=== PATIENT | male | born 1950 | race Caucasian/White ===

== ENCOUNTER 2016-12-07 09:58 | Inpatient (IN) | payer OTHER, MEDICARE ==
[2016-11-08 11:30] VITALS: BMI 29.0
--- NOTE | 2016-11-08 12:17 | PAT Medication Instructions ---
Service Date Nov 08, 2016. Current Home Medication List Albuterol (Ventolin Hfa), 2 PUFF INH DAILY PRN for Shortness of Breath Amlodipine (Norvasc), 5 MG PO QAM Aspirin Enteric Coated (Ecotrin Or Generic *), 81 MG PO QAM Atorvastatin (Lipitor), 80 MG PO QPM Calcium/Vitamin D (Os-Quentin 500 Plus D), 1 TAB PO BID Lisinopril (Prinivil), 40 MG PO QAM Meloxicam (Mobic), 15 MG PO QAM Metoprolol Tartrate (Lopressor) (Lopressor), 100 MG PO BID Olopatadine Hydrochloride (Patanol 0.1% Oph), 1 DROP OP BID PRN Omeprazole (Prilosec), 20 MG PO QAM Tamsulosin Hcl (Flomax *), 0.4 MG PO HS Medication Instructions For Your Scheduled Surgery - Check with surgeon for instructions: Meloxicam (Mobic), 15 MG PO QAM - Hold the following medications the morning of surgery: Lisinopril (Prinivil), 40 MG PO QAM Calcium/Vitamin D (Os-Quentin 500 Plus D), 1 TAB PO BID - Take the following medications the morning of surgery with a sip of water: Omeprazole (Prilosec), 20 MG PO QAM Olopatadine Hydrochloride (Patanol 0.1% Oph), 1 DROP OP BID PRN (if needed) Metoprolol Tartrate (Lopressor) (Lopressor), 100 MG PO BID Aspirin Enteric Coated (Ecotrin Or Generic *), 81 MG PO QAM Albuterol (Ventolin Hfa), 2 PUFF INH DAILY PRN for Shortness of Breath (if needed) Amlodipine (Norvasc), 5 MG PO QAM - Take the following medications as scheduled the night before surgery: Tamsulosin Hcl (Flomax *), 0.4 MG PO HS Olopatadine Hydrochloride (Patanol 0.1% Oph), 1 DROP OP BID PRN (if needed) Metoprolol Tartrate (Lopressor) (Lopressor), 100 MG PO BID Calcium/Vitamin D (Os-Quentin 500 Plus D), 1 TAB PO BID Atorvastatin (Lipitor), 80 MG PO QPM Albuterol (Ventolin Hfa), 2 PUFF INH DAILY PRN for Shortness of Breath (if needed) If you have any questions please call us at [phone] or [phone] or [phone]
[2016-11-08 13:12] LABS: BASO % 0.1 %; BASO ABS # 0.01 K/uL (0-0.2); COMPLETE YES; EOS % 2.1 %; IG% 0.3 %; LYMPH ABS # 1.76 K/uL (1.2-3.4); MEAN CELL VOLUME 97.7 fL (80-100); MEAN CORPUSCULAR HEMOGLOBIN 33.7 pg (25-34); MEAN CORPUSCULAR HGB CONC 34.5 g/dl (32-36); MEAN PLATELET VOLUME 9.6 fL (7.4-10.4); MONO % 7.2 %; NEUT % 64.3 %; PLATELET COUNT 154 K/uL (130-400); WHITE BLOOD COUNT 6.78 K/uL (4.8-10.8)
[2016-11-08 13:14] LABS: URINE APPEARANCE CLEAR (CLEAR); URINE BILIRUBIN NEG (NEG); URINE COLOR YELLOW; URINE EPITHELIAL CELL AUTO 0-5 /lpf (0-5); URINE NITRITE NEG (NEG); URINE SPECIFIC GRAVITY 1.029 (1.000-1.030); UROBILINOGEN NEG (NEG); ZZUR CULT IF INDIC CLEAN CATCH NO
[2016-11-08 13:15] LABS: MANUAL MICROSCOPIC REQUIRED? NO; REVIEW REQ? NO
--- NOTE | 2016-11-08 13:20 | DIAGNOSTIC IMAGING REPORT ---
CHEST PREADMISSION(PA/LAT) CLINICAL HISTORY: Preoperative chest COMPARISON STUDY: 12/24/2010 FINDINGS: Postsurgical changes are present on the left. There is superior left hilar retraction. There are persistent areas of left apical pleural-parenchymal scarring. There is no acute parenchymal consolidation. There is no failure. There are no pleural effusions.[ IMPRESSION: Chronic left apical scarring. No acute findings. Electronically signed by: Brown Quiroz M.D. 11/08/2016 1:19 PM Dictated Date/Time: 11/08/2016 1:18 PM
[2016-11-08 13:21] LABS: BUN/CREATININE RATIO 30.7 (10-20); CALCIUM 9.8 mg/dl (8.5-10.1); POTASSIUM 4.5 mmol/L (3.5-5.1)
[2016-11-08 13:23] LABS: ESTIMATED AVERAGE GLUCOSE 120 mg/dl; HA1C FLAG Normal (Normal)
[2016-11-08 13:25] LABS: INR 1.1 (0.9-1.1); PROTHROMBIN TIME (PATIENT) 11.4 SECONDS (9.0-12.0)
--- NOTE | 2016-11-10 15:26 | History and Physical ---
History & Physical Date Nov 10, 2016. Chief Complaint bilateral knee osteoarthritis History of Present Illness natalio is a pleasant 66-year-old male who presents for preoperative evaluation prior to bilateral knee replacements. Patient states that they have been having pain in this knee for many years now, which has gradually worsened, it has now gotten to the point it is affecting his daily activities including walking, standing, going up and down steps. Patient has tried and failed conservative measures including previous cortisone injection, viscosupplementation, bracing, physical therapy, and PO NSAIDs with no relief. At this point in time, patient has failed conservative measures and would like to proceed with bilateral knee replacement. Past Medical/Surgical History Hypertension High Cholesterol history of lung cancer GERD history of prostate cancer Right great toe surgery right Carpal tunnel release Additional History Hepatic Disease: No Hypertension: Yes Infectious Diseases: No Allergies Coded Allergies: Iodinated Contrast Media (Verified Allergy, Intermediate, HIVES WITH "CT DYE", 11/08/16) Home Medications Scheduled Amlodipine (Norvasc), 5 MG PO QAM Aspirin Enteric Coated (Ecotrin Or Generic *), 81 MG PO QAM Atorvastatin (Lipitor), 80 MG PO QPM Calcium/Vitamin D (Os-Quentin 500 Plus D), 1 TAB PO BID Lisinopril (Prinivil), 40 MG PO QAM Meloxicam (Mobic), 15 MG PO QAM Metoprolol Tartrate (Lopressor) (Lopressor), 100 MG PO BID Olopatadine Hydrochloride (Patanol 0.1% Oph), 1 DROP OP BID PRN Omeprazole (Prilosec), 20 MG PO QAM Tamsulosin Hcl (Flomax *), 0.4 MG PO HS Scheduled PRN Albuterol (Ventolin Hfa), 2 PUFF INH DAILY PRN for Shortness of Breath Physical Examination Skin: warm/dry, no rash Eyes: normal inspection, EOMI, sclerae normal ENT: normal ENT inspection, pharynx normal Head: normocephalic, atraumatic Neck: supple, no adenopathy, trachea midline Respiratory/Chest: lungs clear, normal breath sounds, no respiratory distress Cardiovascular: regular rate, rhythm, no edema, no murmur Addiitonal Comments: Bilateral Knees: no erythema or warmth, mild effusion. ROM 0/3/110 left knee, 0/ 3/115 right knee. ligamentously stable bilateral knees, positive tenderness anterior and medial joint lines. Bilateral knee X-RAY: Xrays reviewed of bilateral knees showing findings consistent with degenerative joint disease including joint space narrowing, subchondral sclerosis and peripheral osteophyte formation. no acute bony pathology, overall varus alignment. Impression: degenerative joint disease of bilateral knees with no acute bony pathology noted. Diagnosis Bilateral Knee osteoarthritis- has failed visco, cortisone, previous knee scopes , PO NSAIDs w/o relief. Further care discussed with patient and at this point in time has failed conservative measures and would like to proceed with bilateral total knee replacements. Plan on discharge will be home with home health physical therapy. DVT prophalaxis with TEDs, SCDs and will also place on Lovenox for 2 weeks postop.. Patient will have follow up appointment in our office two weeks post op for staple/suture removal and re-evaluation. Patient otherwise has no other questions or concerns.
[2016-12-07] VITALS (9 sets, daily range): BP systolic 115–146; BP diastolic 72–88; PULSE 62–77; TEMP 36.4–36.9; O2SAT 96–100; Ht 170.2 cm; Wt 84.9 kg
[~2016-12-07] VITALS: Ht 170.2 cm; Wt 84.9 kg
[2016-12-07] MEDS: TRANEXAMIC ACID INJ 1,000 MG in SODIUM CHLORIDE 0.9% 100ML 100 ML IV SCH ×2 (06:00→06:30)
--- NOTE | 2016-12-07 07:26 | History & Physical Bridge Note ---
H&P Re-Evaluation Bridge Note: I have examined the patient, reviewed the History & Physical and in the interval since the performance of the History & Physical I have noted the following changes of clinical significance: No changes noted
[~2016-12-07 09:58] MED LIST: ACETAMINOPHEN 500 MG TAB PO SCH; AMLO-110 PO; ASPEC81 PO; ATOR-26 PO; BUPIVACAINE 0.25% 30 ML VIAL ONE; BUPIVACAINE 0.5 % 5 MG/1 ML PF 10ML VIAL ONE; CALC500C70 PO; CEFAZOLIN 2000 MG/60 ML D5W 60 ML IV SCH; CeleBREX 200 MG CAP PO SCH; DEXAMETHASONE 4 MG TAB PO SCH; FAMOTIDINE 20 MG TAB PO SCH; FLM4 PO; GABAPENTIN 300 MG CAP PO SCH; LACTATED RINGER'S 1000ML 1,000 ML IV SCH; LACTATED RINGER'S 1000ML 500 ML IV ONE; LACTATED RINGER'S 1000ML IV SCH; LISI40TA PO; MELO7.5T5 PO; METO50TA16 PO; METOCLOPRAMIDE HCL 10 MG TAB PO SCH; OLOP0.1S2 OP; PRLSR20 PO; PRVHFAIN INH; ROPIVACAINE 5MG/ML 30 ML 150 MG, BUPIVACAINE/EPINEPHR 0.5% MPF 30 ML, KETOROLAC TROMETH... INFIL SCH
[2016-12-07] MEDS ORDERED: EpHEDrine SULFATE INJ 50 MG/ML AMP IV PRN (11:45)
[2016-12-07] MEDS ORDERED: ONDANSETRON INJ 2 MG/ML 2 ML VIAL IV PRN ×2 (11:45→16:00)
[2016-12-07] MEDS ORDERED: LABETALOL HCL IV 5 MG/ML 20ML IV PRN (11:45)
[2016-12-07] MEDS ORDERED: HYDROmorphone INJ 1 MG/ML SYR IV PRN (11:45)
[2016-12-07] MEDS ORDERED: ATROPINE SULFATE 0.1 MG/ML 5ML SYR IV PRN (11:45)
[2016-12-07] MEDS ORDERED: MEPERIDINE HCL 25 MG/ML CARP IV PRN (11:45)
[2016-12-07] MEDS ORDERED: FENTANYL CITRATE INJ 50 MCG/1 ML 2 ML VIAL IV PRN (11:45)
[2016-12-07] MEDS ORDERED: MIDAZOLAM HCL 1 MG/ML 2ML VIAL ONE (12:09)
[2016-12-07] MEDS ORDERED: ORTHO JOINT ANESTHETIC ONE (12:51)
[2016-12-07] MEDS ORDERED: POVIDONE-IODINE OP SOLN 30 ML BTL ONE (12:51)
[2016-12-07] MEDS ORDERED: BACITRACIN 50000 UNIT VIAL ONE (12:52)
[2016-12-07] MEDS ORDERED: BUPIVACAINE 0.5 % 5 MG/1 ML PF 10ML VIAL ONE (13:08)
[2016-12-07] MEDS ORDERED: PROPOFOL IV EMULSION 10 MG/ML 20 ML VIAL IV ONE ×3 (13:37→15:18)
[2016-12-07] MEDS ORDERED: PHENYLEPHRINE 100MCG/ML 5ML SYR ONE (14:13)
[2016-12-07] MEDS ORDERED: BACITRACIN 50000 UNIT VIAL IR ONE (14:58)
--- NOTE | 2016-12-07 15:22 | [facility] Operative Report ---
Operative Report Operative Date Dec 07, 2016. Pre-Operative Diagnosis Degenerative Joint Disease, bilateral knee Post-Operative Diagnosis Degenerative Joint Disease, bilateral knees Procedure(s) Performed Bilateral Total Knee Arthroplasty Lopes & Nephew journey 2 nonlocked total knee arthroplasty size right 7 femur 7 tibia Poly-35 oval patella left size 7 femur 7 tibia Poly-size [address] Horowitz Broker Assistant Surgeon(s) Heather Abel PA-C Estimated Blood Loss 5 mL right 5 mL left Findings Patient presents with bilateral varus deformities of both knees with subchondral sclerosis subchondral cystic changes medial osteophytes varus alignment medial varus thrust of femur on tibia as well as patellofemoral arthritis unresponsive conservative management including injections viscus of rotations corticosteroid injections anti-inflammatories relative rest bracing activity modification presents for total knee arthroplasty Specimens A: right knee bone and tissue B: left knee bone and tissue Complication(s) None Disposition Recovery Room / PACU Indications Patient presents after failing attempts at conservative management including injections anti-inflammatories activity modification relative rest patient presents for bilateral total knee Orthoplast after thorough discussion regarding risk altercations patient elected she for bilateral total knee arthroplasty Description of Procedure After proper prepping and draping of the bilateral lower extremities, an anterior midline incision was made over the region of the extensor extensor mechanism of the left knee. After meticulous hemostasis was obtained and maintained in subcutaneous tissues a medial parapatellar incision was made The patella was subluxed lateralward the medial lateral gutter were cleaned from any hypertrophic synovitis and scar tissue of the distal femoral block was placed and the distal femoral osteotomy cut was made subsequently the chamfers anterior and posterior osteotomy cuts were made utilizing the 4-in-1 block the tibia was subsequently subluxed anteriorward medial and ateral meniscal remnants were excised in their entirety remnants of the anterior and posterior cruciate ligaments were excised in their entirety excellent exposure of the proximal tibia was obtained the tibial osteotomy guide was placed on the proximal tibial osteotomy cut was made once again the knee was irrigated with copious amounts of sterile saline solution the patella was subsequently everted lateralward thickened scar tissue around the patella was removed the patella was subsequently cut utilizing a freehand technique and was drilled prepared for final preparation and placement of patella socially flexion-extension gaps were checked and the equal and symmetric trials were placed to the appropriate femoral and tibial trials with poly-spacer being placed for equal flexion and extension gaps and full range of motion including extension to 0 and flexion to 140 the trial components after having been taken to recovery range of motion was subsequently removed meticulous hemostasis was obtained and maintained subsequently a knee block injection of joint cocktail including ropivacaine 0.5 % 150 mg. Bupivacaine 0.5% epinephrine 1-200,030 mL's toradol 30 mg dexamethasone 4 mg ketamine 10 mg clonidine 100 micrograms normal saline solution 30 mg was infiltrated into the soft tissues of the posterior knee medial lateral gutters and periosteal synovium special attention was paid to protect neurovascular structures at all times subsequently trial components having been removed the knee was irrigated with sterile saline solution. debris was removed the proximal tibia was subsequently prepared and was made ready for the placement of the tibial component tibial component was also cemented and tamped into position the femoral component was subsequently placed and cemented in the position the patellar component was subsequently cemented in position because hemostasis once again obtained and maintained wound having been thoroughly irrigated with debridement and debridement lavage was performed as well as a medial parapatellar incision closed with #1 Vicryl in interrupted fashion subcutaneous was closed with #2 Vicryl skin was closed with skin clips Next, an anterior midline incision was made over the region of the extensor extensor mechanism of the right knee. After meticulous hemostasis was obtained and maintained in subcutaneous tissues a medial parapatellar incision was made The patella was subluxed lateralward the medial lateral gutter were cleaned from any hypertrophic synovitis and scar tissue of the distal femoral block was placed and the distal femoral osteotomy cut was made subsequently the chamfers anterior and posterior osteotomy cuts were made utilizing the 4-in-1 block the tibia was subsequently subluxed anteriorward medial and ateral meniscal remnants were excised in their entirety remnants of the anterior and posterior cruciate ligaments were excised in their entirety excellent exposure of the proximal tibia was obtained the tibial osteotomy guide was placed on the proximal tibial osteotomy cut was made once again the knee was irrigated with copious amounts of sterile saline solution the patella was subsequently everted lateralward thickened scar tissue around the patella was removed the patella was subsequently cut utilizing a freehand technique and was drilled prepared for final preparation and placement of patella socially flexion-extension gaps were checked and the equal and symmetric trials were placed to the appropriate femoral and tibial trials with poly-spacer being placed for equal flexion and extension gaps and full range of motion including extension to 0 and flexion to 140 the trial components after having been taken to recovery range of motion was subsequently removed meticulous hemostasis was obtained and maintained subsequently a knee block injection of joint cocktail including ropivacaine 0.5 % 150 mg. Bupivacaine 0.5% epinephrine 1-200,030 mL's toradol 30 mg dexamethasone 4 mg ketamine 10 mg clonidine 100 micrograms normal saline solution 30 mg was infiltrated into the soft tissues of the posterior knee medial lateral gutters and periosteal synovium special attention was paid to protect neurovascular structures at all times subsequently trial components having been removed the knee was irrigated with sterile saline solution. debris was removed the proximal tibia was subsequently prepared and was made ready for the placement of the tibial component tibial component was also cemented and tamped into position the femoral component was subsequently placed and cemented in the position the patellar component was subsequently cemented in position because hemostasis once again obtained and maintained wound having been thoroughly irrigated with debridement and debridement lavage was performed as well as a medial parapatellar incision closed with #1 Vicryl in interrupted fashion subcutaneous was closed with #2 Vicryl skin was closed with skin clips.. PA-C was necessary for prepping and drapping as well as wound closure of deep fascia Sub cutaneous tissue and skin and was necessary for the case. A sterile compressive dressings were placed, patient was taken to recovery in stable condition of report dictated by Carlos Manuel I attest to the content of the Intraoperative Record and any orders documented therein. Any exceptions are noted below. I attest to the content of the Intraoperative Record and any orders documented therein. Any exceptions are noted below.
[2016-12-07] MEDS ORDERED: ALBUTEROL HFA 8 GM INHALER INH PRN (16:00)
[2016-12-07] MEDS ORDERED: SOD PHOSPHATE/SOD BIPHOSPHATE ENEMA 132 ML BTL PR PRN (16:00)
[2016-12-07] MEDS ORDERED: ZOLPIDEM TARTRATE 5 MG TAB PO PRN (16:00)
[2016-12-07] MEDS ORDERED: MAGNESIUM HYDROXIDE SUSP 30 ML UDC PO PRN (16:00)
[2016-12-07] MEDS ORDERED: ALUMINUM/MAGNESIUM/SIMETH (MAALOX MAX) 30 ML UDC PO PRN (16:00)
[2016-12-07] MEDS ORDERED: DiphenhydrAMINE HCL 50 MG/ML VIAL IV PRN (16:00)
[2016-12-07] MEDS ORDERED: BISACODYL 10 MG SUPP PR PRN (16:00)
[2016-12-07] MEDS ORDERED: MoRPHine SULFATE 2 MG/ML CARP IV PRN (16:00)
--- NOTE | 2016-12-07 16:51 | Anesthesiology Progress Note ---
Anesthesia Post Op Note Date & Time Dec 07, 2016 at 16:51 Vital Signs Pain Intensity: 0 Vital Signs Past 12 Hours Date Time Temp Pulse Resp B/P (MAP) Pulse Ox O2 Delivery O2 Flow Rate FiO2 12/07/16 16:40 62 18 118/67 100 Nasal Cannula 4 12/07/16 16:30 65 18 121/68 100 Nasal Cannula 4 12/07/16 16:20 66 18 114/66 100 Nasal Cannula 4 12/07/16 16:10 69 18 112/64 99 Nasal Cannula 4 12/07/16 16:00 68 14 107/65 96 Nasal Cannula 4 12/07/16 15:51 36 68 14 102/68 96 Nasal Cannula 4 12/07/16 10:39 36.9 62 20 137/87 96 Room Air Notes Mental Status: alert / awake / arousable, participated in evaluation Pt Amnestic to Procedure: Yes Nausea / Vomiting: adequately controlled Pain: adequately controlled Airway Patency, RR, SpO2: stable & adequate BP & HR: stable & adequate Hydration State: stable & adequate Neuraxial Anesthesia: was administered, sensory block is resolving Anesthetic Complications: no major complications apparent
--- NOTE | 2016-12-07 16:53 | DIAGNOSTIC IMAGING REPORT ---
L KNEE 1 OR 2 VIEWS ROUTINE, R KNEE 1 OR 2 VIEWS ROUTINE CLINICAL HISTORY: AP/LATERAL IN PACU LEFT KNEE COMPARISON STUDY: None. FINDINGS: The patient is status post bilateral total knee arthroplasties. The hardware is intact. No fracture or dislocation. Surgical drains are in place. IMPRESSION: Status post bilateral total knee arthroplasties. No evidence for hardware complication. Electronically signed by: Hi Galdamez M.D. 12/07/2016 4:51 PM Dictated Date/Time: 12/07/2016 4:50 PM
[2016-12-07] MEDS ORDERED: MoRPHine SULFATE 4 MG/ML 1 ML CARP\\VIAL IV PRN (17:00)
[2016-12-07] MEDS: D5W AND 1/2NSS + 20MEQ KCL 1,000 ML IV SCH (19:44)
[2016-12-07] MEDS: OXYCODONE HCL IR 5 MG TAB (IMMEDIATE RELEASE) PO PRN (19:45)
[2016-12-07] MEDS: OXYCODONE HCL 10 MG TABCR (OXYCONTIN) PO SCH (21:35)
[2016-12-07] MEDS: SENNA 8.6 MG TAB PO SCH (21:35)
[2016-12-07] MEDS: ASPIRIN 81 MG ECTAB PO SCH (21:35)
[2016-12-07] MEDS: TAMSULOSIN HCL 0.4 MG CAP PO SCH (21:36)
[2016-12-07] MEDS: ATORVASTATIN 40 MG TAB PO SCH (21:36)
[2016-12-07] MEDS: METOPROLOL TARTRATE 50 MG TAB PO SCH (21:37)
[2016-12-07] MEDS: ACETAMINOPHEN 500 MG TAB PO SCH (21:38)
[2016-12-07] MEDS: KETOROLAC TROMETHAMINE 15 MG/ML VIAL IV. SCH (21:38)
[2016-12-07] MEDS: CEFAZOLIN IV 1,000 MG in SYRINGE 0 ML IV SCH (21:46)
[2016-12-08] VITALS (7 sets, daily range): BP systolic 100–169; BP diastolic 58–78; PULSE 67–101; TEMP 36.5–36.9; O2SAT 92–97
[2016-12-08] MEDS: KETOROLAC TROMETHAMINE 15 MG/ML VIAL IV. SCH ×3 (03:35→16:47)
[2016-12-08] MEDS: D5W AND 1/2NSS + 20MEQ KCL 1,000 ML IV SCH ×2 (03:35→13:33)
[2016-12-08 06:16] LABS: HEMATOCRIT 35.1 % (42-52); MEAN CELL VOLUME 95.6 fL (80-100); MEAN CORPUSCULAR HEMOGLOBIN 32.7 pg (25-34); MEAN CORPUSCULAR HGB CONC 34.2 g/dl (32-36); MEAN PLATELET VOLUME 9.6 fL (7.4-10.4); PLATELET COUNT 121 K/uL (130-400); RED BLOOD COUNT 3.67 M/uL (4.7-6.1); WHITE BLOOD COUNT 13.42 K/uL (4.8-10.8)
[2016-12-08] MEDS: ACETAMINOPHEN 500 MG TAB PO SCH ×3 (06:16→21:47)
[2016-12-08] MEDS: CEFAZOLIN IV 1,000 MG in SYRINGE 0 ML IV SCH (06:16)
[2016-12-08 06:49] LABS: BUN/CREATININE RATIO 21.1 (10-20); CALCIUM 8.2 mg/dl (8.5-10.1); CREATININE 1.06 mg/dl (0.60-1.40); POTASSIUM 4.2 mmol/L (3.5-5.1)
[2016-12-08] MEDS ORDERED: DEXAMETHASONE 4 MG TAB PO SCH (07:30)
[2016-12-08] MEDS: PANTOprazole SOD 40 MG TAB PO SCH (09:22)
[2016-12-08] MEDS: OXYCODONE HCL 10 MG TABCR (OXYCONTIN) PO SCH ×2 (09:23→21:45)
[2016-12-08] MEDS: OXYCODONE HCL IR 5 MG TAB (IMMEDIATE RELEASE) PO PRN (09:24)
[2016-12-08] MEDS: METOPROLOL TARTRATE 50 MG TAB PO SCH ×2 (09:24→21:45)
[2016-12-08] MEDS: MULTIVITAMIN TAB PO SCH (09:25)
[2016-12-08] MEDS: LISINOPRIL 40 MG TAB PO SCH (09:25)
[2016-12-08] MEDS: AMLODIPINE BESYLATE 5 MG TAB PO SCH (09:25)
[2016-12-08] MEDS: ASPIRIN 81 MG ECTAB PO SCH ×2 (09:25→21:44)
--- NOTE | 2016-12-08 10:15 | Orthopedic Progress Note ---
Orthopedic Progress Note Date of Service Dec 08, 2016. Subjective Post OP Day: 1 Reports: feeling well, Denies: chest pain, SOB, nausea / vomiting, light headedness, calf pain Objective calves soft nontender, N/V intact, capillary refill less than 2 sec., incision C /D/I, A&O x3, toes mobile, hemovac drainage (R 25/175 cc per shift; L 25/115 cc per shift) Date Time Temp Pulse Resp B/P (MAP) Pulse Ox O2 Delivery O2 Flow Rate FiO2 12/08/16 09:20 84 150/77 (101) 12/08/16 07:36 36.7 69 16 119/76 (90) 95 Room Air 12/08/16 02:45 36.7 72 16 101/69 (80) 92 Room Air 12/07/16 23:05 36.5 77 16 115/72 (86) 97 Room Air 12/07/16 20:30 36.4 75 16 124/72 (89) 96 Room Air 12/07/16 20:30 Room Air 12/07/16 19:17 36.4 75 16 146/80 (102) 99 12/07/16 18:15 36.5 76 16 146/83 (104) 100 Nasal Cannula 2.0 12/07/16 18:09 97 Nasal Cannula 2.0 12/07/16 18:04 97 Nasal Cannula 2.0 12/07/16 17:54 36.4 68 18 139/88 (105) 98 Nasal Cannula 2.0 12/07/16 17:15 36.5 63 16 129/77 (94) 97 Nasal Cannula 2.0 12/07/16 16:50 36 60 18 123/68 100 Nasal Cannula 4 12/07/16 16:40 62 18 118/67 100 Nasal Cannula 4 12/07/16 16:30 65 18 121/68 100 Nasal Cannula 4 12/07/16 16:20 66 18 114/66 100 Nasal Cannula 4 12/07/16 16:10 69 18 112/64 99 Nasal Cannula 4 12/07/16 16:00 68 14 107/65 96 Nasal Cannula 4 12/07/16 15:51 36 68 14 102/68 96 Nasal Cannula 4 12/07/16 10:39 36.9 62 20 137/87 96 Room Air Laboratory Results 24 Hours: Test 12/08/16 05:59 Hematocrit 35.1 % Hemoglobin 12.0 g/dL Assessment & Plan Assessment: POD#1 sp BL TKAs Plan: PT/OT DVT proph- ASA 81mg bid Pain management- Pearl, Oxycontin, Tylenol, Celebrex DC planning- home with [facility], likely tomorrow. Dc dressing/drains in am.
--- NOTE | 2016-12-08 13:35 | Discharge Instructions ---
Discharge Instructions Date of Service Dec 08, 2016. Admission Reason for Admission: Bilateral Knee Osteoarthritis Discharge Discharge Diagnosis / Problem: sp BL TKAs Discharge Goals Goal(s): Decrease discomfort, Improve function, Increase independence Activity Recommendations Activity Limitations: per Instructions/Follow-up section . Instructions / Follow-Up Instructions / Follow-Up ACTIVITY RECOMMENDATIONS: SELF CARE INSTRUCTIONS AFTER TOTAL KNEE REPLACEMENT A. You may need to continue a physical therapy program after discharge from the hospital. There are several options available to you. Your doctor will assist you in selecting the best one for you. 1. An out-patient facility 2 to 3 times a week for therapy or home therapy. 2. Continue working on all exercises taught to you in the hospital. Your goals should be to increase bending of your knee to 90 degrees and beyond and to fully straighten your knee. B. You may progress at your own pace from walking with a walker or crutches to a cane; then to no assistive devices. C. Make walking a part of your daily routine. Be up as much as comfortable with rest periods throughout the day. Rest with leg elevation is very important. Use the ice wrap frequently for the first 3-4 weeks. D. There are no restrictions on activities. You may ride in a car, shop, participate in enamel applier and all social activities. E. Wear the long elastic stockings (AMOR hose) 20 hours a day for 2 weeks after surgery. They can be removed several times a day for laundering and for a bath. F. You may shower, no tub baths until cleared by your doctor. SPECIAL CARE INSTRUCTIONS: VERY IMPORTANT TO READ AND REVIEW A. There are a few signs you need to watch for after you are home. Call [facility] if you notice any of the followin. Increased severe knee pain. Some pain is expected especially when you exercise. 2. Increased swelling in your leg or knee; pain or swelling of the calf muscle in either lower leg. 3. Any fluid drainage from the incision. 4. Shortness of breath or chest pain. B. Please call [facility] at if you have any concerns or questions about your operation or recovery. The doctor or his nurse will return your call promptly. C. You must take antibiotics before dental work, bladder, bowel or other surgery. Your doctor will provide you with a permanent care to carry describing this precaution. IMPORTANT: * REMEMBER TO TAKE ASPIRIN, 81 MG, TWICE DAILY FOR 4 WEEKS UNLESS OTHERWISE DIRECTED. THIS IS YOUR BLOOD THINNER. * HIGH RISK PATIENTS MAY BE PRESCRIBED A STRONGER BLOOD THINNER. THIS WILL BE PROVIDED AT DISCHARGE. * CALL IF INCREASED PAIN, REDNESS, DRAINAGE OR FEVER GREATER THAT 101. * WEAR AMOR HOSE 20 HOURS PER DAY FOR 2 WEEKS. DERMABOND Prineo- This is a mesh tape dressing that is covered with glue. It should remain in place until the incision is properly healed, usually 10-14 days. This dressing is designed to naturally slough off. You may trim the excess mesh tape as it peels off. Incision may be briefly wet in a shower. Dry immediately by blotting with a clean, dry towel. Do not bath or swim until instructed by your doctor. Do not scratch, rub, or pick at the dressing. Do not apply any topical ointments or lotions until dressing is completely removed and/or instructed by your doctor. There may be a small piece of suture material at one end of your incision. Do not pull or trim this. If it is bothersome or catching on clothing, you may cover it with a band-aid. FOLLOW UP VISIT: If appointment is not already scheduled: Please call [facility] to make a follow-up appointment for 2 weeks after your surgery at . Current Hospital Diet Patient's current hospital diet: Regular Diet Discharge Diet Recommended Diet: Regular Diet Procedures Procedures Performed: Bilateral Total Knee Arthroplasty Lopes & Nephew journey 2 nonlocked total knee arthroplasty size right 7 femur 7 tibia Poly-35 oval patella left size 7 femur 7 tibia Poly-size 35 oval patella Pending Studies Studies pending at discharge: no Laboratory Results Hemoglobin A1c Test 11/08/16 12:25 Range/Units Estimated Average Glucose 120 mg/dl Hemoglobin A1c 5.8 H 4.5-5.6 % Medical Emergencies . Who to Call and When: Medical Emergencies: If at any time you feel your situation is an emergency, please call 911 immediately. . Non-Emergent Contact Non-Emergency issues call your: Surgeon . "Provider Documentation" section prepared by Sabina Abel. . VTE Core Measure Inpt VTE Proph given/why not?: Other Anticoagulation, T.E.D. Stockings, SCD's [place] Drug Monitoring Program Search Results: patient reviewed within database, no issues identified
[2016-12-08] MEDS: CeleBREX 200 MG CAP PO SCH (21:44)
[2016-12-08] MEDS: TAMSULOSIN HCL 0.4 MG CAP PO SCH (21:44)
[2016-12-08] MEDS: ATORVASTATIN 40 MG TAB PO SCH (21:45)
[2016-12-08] MEDS: SENNA 8.6 MG TAB PO SCH (22:19)
[2016-12-09] MEDS: ACETAMINOPHEN 500 MG TAB PO SCH (05:43)
[2016-12-09 07:23] VITALS: BP 128/77; PULSE 71; TEMP 36.9; O2SAT 93
[2016-12-09] MEDS ORDERED: SNK PO (08:10)
[2016-12-09] MEDS ORDERED: OXYSR10 PO (08:10)
[2016-12-09] MEDS ORDERED: ACET-24 PO (08:10)
[2016-12-09] MEDS ORDERED: ONDA8TAB6 PO (08:10)
[2016-12-09] MEDS ORDERED: ASPEC81 PO (08:10)
[2016-12-09] MEDS ORDERED: RXC5 PO (08:10)
[2016-12-09] MEDS ORDERED: CLB200 PO (08:10)
--- NOTE | 2016-12-09 08:22 | DISCHARGE SUMMARY ---
DISCHARGE DIAGNOSIS: Degenerative joint disease, bilateral knees. SECONDARY DIAGNOSIS: None. CONSULTS: None. COMPLICATIONS: None. PROCEDURE: The patient underwent a bilateral total knee arthroplasty with Dr. Horowitz on 12/07/2016. BRIEF HISTORY: Please see previously dictated history and physical. HOSPITAL SUMMARY: The patient underwent the above procedure on the above day. The Procedure went without complication. Postop day 1, the patient was feeling well without complaints. He denied chest pain or shortness of breath. Vital signs were stable. He was afebrile. Dressing was clean, dry and intact. He was neurovascularly intact. Calves were soft and nontender. Hemovac drained 25 and 175 mL on the right, 25 and 115 mL on the left. Hemoglobin was 12.2. The patient began physical therapy per protocol. Postop day 2, the patient continued to improve. Vital signs were stable. He was afebrile. Dressings were removed. Incisions were clean, dry and intact. He was neurovascularly intact. Calves were soft and nontender. The patient continued to progress with physical therapy. He was discharged home later that day without [facility]. For further review, please see the chart. Lab, x-ray data and discharge instructions as per chart.
[2016-12-09 08:23] VITALS: BP 128/77; PULSE 71; TEMP 36.9; O2SAT 93
[2016-12-09] MEDS: MULTIVITAMIN TAB PO SCH (09:23)
[2016-12-09] MEDS: PANTOprazole SOD 40 MG TAB PO SCH (09:23)
[2016-12-09] MEDS: LISINOPRIL 40 MG TAB PO SCH (09:23)
[2016-12-09] MEDS: AMLODIPINE BESYLATE 5 MG TAB PO SCH (09:23)
[2016-12-09] MEDS: OXYCODONE HCL IR 5 MG TAB (IMMEDIATE RELEASE) PO PRN (09:28)
[2016-12-09] MEDS: OXYCODONE HCL 10 MG TABCR (OXYCONTIN) PO SCH (09:28)
[2016-12-09] MEDS: CeleBREX 200 MG CAP PO SCH (10:11)
[2016-12-09] MEDS: ASPIRIN 81 MG ECTAB PO SCH (10:11)
[2016-12-09] MEDS: METOPROLOL TARTRATE 50 MG TAB PO SCH (10:12)
== END 2016-12-09 10:59 | disposition home health service (06) | DRG 462 ==
LOC: C.ACU 09:58 → C.3E 11:11 → ENRESERV 16:30
PROVIDERS: ADMIT Orthopaedic Surgery; ATTEND Orthopaedic Surgery
PROC: 0SRC0J9 Replacement of Right Knee Joint with Synthetic Substitute, Cemented, Open Approach (ICD-10-PCS; principal; 2016-12-07 12:45)
PROC: 0SRW0J9 Replacement of Left Knee Joint, Tibial Surface with Synthetic Substitute, Cemented, Open Approach (ICD-10-PCS; principal; 2016-12-07 12:45)
DX: M17.0 Bilateral primary osteoarthritis of knee (principal); I10 Essential (primary) hypertension; E78.00 Pure hypercholesterolemia, unspecified; K21.9 Gastro-esophageal reflux disease without esophagitis; Z85.118 Personal history of other malignant neoplasm of bronchus and lung; Z85.46 Personal history of malignant neoplasm of prostate; Z79.82 Long term (current) use of aspirin